=== PATIENT | male | born 1965 | race Hispanic/Latino ===

== ENCOUNTER 2021-11-21 15:26 | Emergency (ER) | payer OTHER, MEDICARE ==
[~2021-11-21] VITALS: Ht 165.1 cm; Wt 85.3 kg
[2021-11-21] MEDS ORDERED: ONDANSETRON 4MG INJ IVP ONE (16:00)
[2021-11-21] MEDS ORDERED: 0.9%NACL 1000ML 1,000 ML IV ONE (16:00)
[2021-11-21 16:01] LABS: APPEARANCE,URINE Clear (CLEAR); BILIRUBIN,URINE Negative (NEGATIVE); COLOR,URINE Yellow (YELLOW); GLUCOSE, URINE (UA) Negative (NEGATIVE); KETONES,URINE Negative (NEGATIVE); LEUKOCYTE ESTERASE ,URINE Negative (NEGATIVE); NITRATE,URINE Negative (NEGATIVE); OCCULT BLOOD,URINE Negative (NEGATIVE); PROTEIN,URINE Negative (NEGATIVE)
[2021-11-21 16:13] LABS: BASOPHILS % (AUTO) 0.2 % (0.0-5.0); EOSINOPHILS % (AUTO) 1.9 % (0.0-8.0); HEMATOCRIT 45.2 % (42-54); LYMPHOCYTES % (AUTO) 33.6 % (21.0-51.0); MEAN CORPUSCULAR HGB CONC 34.3 g/dL (32.0-36.0); MEAN CORPUSCULAR VOLUME 87.6 fL (79-99); MONOCYTES % (AUTO) 15.4 % (3.0-13.0); NEUTROPHILS % (AUTO) 47.8 % (40.0-77.0); PLATELET COUNT (AUTO) 355 K/uL (130-400); RED BLOOD CELL COUNT(AUTO) 5.16 MIL/uL (4.50-6.20); RED CELL DISTRIBUTION WIDTH 11.8 % (11.0-15.5); WHITE BLOOD COUNT (AUTO) 5.7 K/uL (4.8-10.8)
[2021-11-21 16:23] LABS: CREATININE 0.8 mg/dL (0.5-1.5); POTASSIUM 4.1 mmol/L (3.5-5.1)
[2021-11-21 16:33] LABS: ALBUMIN 2.9 g/dL (3.5-5.0); BILIRUBIN,TOTAL 0.4 mg/dL (0.2-1.0); CRP QUANTITATIVE 12.2 mg/L (0.00-9.0); TOTAL PROTEIN, SERUM 6.8 g/dL (6.0-8.3)
[2021-11-21] MEDS ORDERED: HYDROCODONE/ACETAMINOPHEN 10/325 MG TAB PO ONE (17:00)
[2021-11-21] MEDS ORDERED: HYDROCODONE/ACETAMINOPHEN 10/325 MG TAB ONE (17:05)
[2021-11-21 17:21] VITALS: BP 118/76
[2021-11-21] MEDS ORDERED: DICY20TA2 PO (17:24)
[2021-11-21] MEDS ORDERED: ONDA4TAB10 PO (17:24)
== END 2021-11-21 17:31 | disposition home or self-care (01) ==
LOC: EDH 15:26
DX: A08.4 Viral intestinal infection, unspecified (principal); I95.9 Hypotension, unspecified; E86.0 Dehydration; R42 Dizziness and giddiness; F41.9 Anxiety disorder, unspecified; F32.9 Major depressive disorder, single episode, unspecified; E11.9 Type 2 diabetes mellitus without complications; K21.9 Gastro-esophageal reflux disease without esophagitis; E78.00 Pure hypercholesterolemia, unspecified; G89.29 Other chronic pain; Z98.890 Other specified postprocedural states
CPT/HCPCS: 36415; 80053; 81003; 84484; 85025; 86140; 96361; 96374; 99283; J2405; J7030; 96360

== ENCOUNTER 2023-12-22 05:27 | Emergency (ER) | payer OTHER, MEDICARE ==
[~2023-12-22] VITALS: Ht 165.1 cm; Wt 80.3 kg
[~2023-12-22 05:27] MED LIST: DICY20TA2 PO; ONDA4TAB10 PO
[2023-12-22 06:02] LABS: APPEARANCE,URINE CLEAR (CLEAR); BILIRUBIN,URINE NEGATIVE (NEGATIVE); COLOR,URINE LIGHT-YELLOW (YELLOW); GLUCOSE, URINE (UA) NEGATIVE (NEGATIVE); KETONES,URINE NEGATIVE (NEGATIVE); LEUKOCYTE ESTERASE ,URINE NEGATIVE Leu/uL (NEGATIVE); NITRATE,URINE NEGATIVE (NEGATIVE); OCCULT BLOOD,URINE NEGATIVE (NEGATIVE); PH,URINE 7.5 (5.0-8.0); PROTEIN,URINE NEGATIVE (NEGATIVE); UROBILINOGEN,URINE 0.2 mg/dL (0.2-1.0)
[2023-12-22 06:07] LABS: BASOPHILS # (AUTO) 0.05 K/uL (0.00-0.20); BASOPHILS % (AUTO) 0.7 % (0.0-5.0); EOSINOPHILS # (AUTO) 0.14 K/uL (0.00-0.70); EOSINOPHILS % (AUTO) 1.9 % (0.0-8.0); HEMATOCRIT 42.6 % (42-54); IMMATURE GRANULOCYTE ABSOLUTE 0.03 K/uL (0-1); LYMPHOCYTES # (AUTO) 2.3 K/uL (1.0-4.8); LYMPHOCYTES % (AUTO) 31.4 % (21.0-51.0); MEAN CORPUSCULAR HEMOGLOBIN 30.1 pg (27.0-33.0); MEAN CORPUSCULAR VOLUME 88.4 fL (79-99); MONOCYTES # (AUTO) 0.8 K/uL (0.1-1.0); MONOCYTES % (AUTO) 10.4 % (3.0-13.0); NEUTROPHILS % (AUTO) 55.2 % (40.0-77.0); PLATELET COUNT (AUTO) 201 K/uL (130-400); RED BLOOD CELL COUNT(AUTO) 4.82 MIL/uL (4.50-6.20); RED CELL DISTRIBUTION WIDTH 14.6 % (11.0-15.5); WHITE BLOOD COUNT (AUTO) 7.2 K/uL (4.8-10.8)
[2023-12-22 06:07] LABS: ADD UA MICROSCOPIC NO
[2023-12-22] MEDS: IBUPROFEN 600 MG TABLET ONE (06:11)
[2023-12-22] MEDS: ONDANSETRON 4MG INJ ONE (06:11)
[2023-12-22] MEDS: ACETAMINOPHEN 500 MG TABLET ONE (06:11)
[2023-12-22] MEDS: 0.9%NACL 1000ML 2,000 ML IV ONE ×2 (06:12→06:13)
[2023-12-22] MEDS: IBUPROFEN 600 MG TABLET PO ONE ×2 (06:13→06:50)
[2023-12-22] MEDS: ONDANSETRON 4MG INJ IVP ONE (06:13)
[2023-12-22] MEDS: ACETAMINOPHEN 500 MG TABLET PO ONE (06:13)
[2023-12-22 06:15] LABS: RAPID GROUP A STREP negative (NEGATIVE)
[2023-12-22 06:21] LABS: SARS-CoV-2, RNA, NAAT NEGATIVE SARS CoV-2 (NEGATIVE)
[2023-12-22 06:22] LABS: ALBUMIN 3.9 g/dL (3.5-5.0); BILIRUBIN,TOTAL 0.9 mg/dL (0.2-1.0); CREATININE 1.1 mg/dL (0.5-1.5); MAGNESIUM 1.5 mg/dL (1.80-2.40); POTASSIUM 4.8 mmol/L (3.5-5.1); TOTAL PROTEIN, SERUM 7.4 g/dL (6.0-8.3)
[2023-12-22 06:25] LABS: INFLUENZA TYPE B Negative For Type B (NEGATIVE)
[2023-12-22 06:36] LABS: B-TYPE NATRIURETIC PEPTIDE 9 pg/mL (0-100)
[2023-12-22 06:42] LABS: INFLUENZA TYPE A Positive For Type A (NEGATIVE)
[2023-12-22 06:50] VITALS: TEMP 104
[2023-12-22] MEDS ORDERED: AUD IH (09:13)
[2023-12-22] MEDS ORDERED: GUAI600T50 PO (09:13)
[2023-12-22] MEDS ORDERED: OSEL75 PO (09:13)
[2023-12-22] MEDS: OSELTAMIVIR PHOSPHATE 75 MG CAP PO ONE (09:30)
[2023-12-22 09:37] VITALS: BP 123/78; PULSE 78; RESP 18; O2SAT 98
== END 2023-12-22 09:38 | disposition home or self-care (01) ==
LOC: EDH 05:27
DX: J10.1 Influenza due to other identified influenza virus with other respiratory manifestations (principal); J20.9 Acute bronchitis, unspecified; E11.9 Type 2 diabetes mellitus without complications; E66.9 Obesity, unspecified; E78.00 Pure hypercholesterolemia, unspecified; I10 Essential (primary) hypertension; Z68.29 Body mass index [BMI] 29.0-29.9, adult; Z20.822 Contact with and (suspected) exposure to COVID-19
CPT/HCPCS: 99285; 96374; 71045; 87635; 83735; 84484; 80053; 83880; 85025; 87040 ×2; 87880; 87804 ×2; 83605; 81003; 36415; 93005; J7030; J2405